=== PATIENT | male | born 1960 | race African-American/Black ===

== ENCOUNTER 2020-03-30 08:22 | Day surgery (SDC) | payer OTHER ==
[~2020-03-30] VITALS: Ht 175.3 cm; Wt 99.8 kg
[2020-03-30 08:29] VITALS: BP 147/98
[2020-03-30 14:07] VITALS: BP 152/92
== END 2020-03-30 14:00 ==
LOC: GI 08:22
PROVIDERS: ATTEND Internal Medicine Gastroenterology
DX: Z12.11 Encounter for screening for malignant neoplasm of colon (principal); D12.5 Benign neoplasm of sigmoid colon; K64.8 Other hemorrhoids; K57.30 Diverticulosis of large intestine without perforation or abscess without bleeding; Z79.82 Long term (current) use of aspirin; Z79.899 Other long term (current) drug therapy; Z80.0 Family history of malignant neoplasm of digestive organs
CPT/HCPCS: 45378; J1200; J1610; J2250; J2310; J3010; J3490